=== PATIENT | male | born 1970 | race Caucasian/White ===

== ENCOUNTER 2016-05-31 14:29 | Emergency (ER) | payer MEDICARE, MEDICAID | END 2016-05-31 15:49 | disposition left against medical advice (07) | LOC: UCCORT 14:29 | DX: S89.91XA Unspecified injury of right lower leg, initial encounter (principal); X58.XXXA Exposure to other specified factors, initial encounter; Y93.9 Activity, unspecified; Y92.9 Unspecified place or not applicable; Z53.21 Procedure and treatment not carried out due to patient leaving prior to being seen by health care provider ==

== ENCOUNTER 2016-09-06 15:12 | Emergency (ER) | payer MEDICARE, MEDICAID ==
[2016-09-06 16:56] VITALS: BP 133/88
--- NOTE | 2016-09-06 17:05 | UC ---
Hand/Wrist HPI - HPI Summary HPI Summary: The patient comes in today for: 1. Right index and middle finger: Onset: Today Palliative/provocative: Movement makes it worse; rest makes it better. Quality: Ache. Region: Whole finger. Severity: 6 for the index finger. Time: Constant Associated symptoms: Event: The fingers were caught between the garbage can and the garbage bag. He states that he can't move his index finger "at all." * - History Of Current Complaint Chief Complaint: UCUpperExtremity Stated Complaint: RIGHT INDEX FINGER INJURY Time Seen by Provider: 09/06/16 16:57 Hx Obtained From: Patient, Family/Beauty Operator Apprentice ?: No - Allergies/Home Medications Allergies/Adverse Reactions: Allergies Allergy/AdvReac Type Severity Reaction Status Date / Time Amoxicillin [From Augmentin] Allergy Intermediate Rash Verified 09/06/16 17:14 Ampicillin Allergy Intermediate Rash Verified 09/06/16 17:14 Chlorine Allergy Intermediate Rash Verified 09/06/16 17:14 Clavulanic Acid Allergy Intermediate Rash Verified 09/06/16 17:14 [From Augmentin] Sulfa Drugs Allergy Intermediate Rash Verified 09/06/16 17:14 PMH/Surg Hx/FS Hx/Imm Hx Previously Healthy: No - BPH Endocrine History Of: Reports: Diabetes, Dyslipidemia Denies: Thyroid Disease - PH, Hyperthyroidism, Hypothyroidism Cardiovascular History Of: Denies: Cardiac Disorders, Hypertension, Pacemaker/ICD, Myocardial Infarction , Congestive Heart Failure, Atrial Fibrillation, Deep Vein Thrombosis, Bleeding Disorders Respiratory History Of: Denies: COPD, Asthma, Bronchitis, Pneumonia, Pulmonary Embolism GI/ History Of: Reports: Gastroesophageal Reflux Denies: Ulcer, Gastrointestinal Bleed, Gall Bladder Disease, Kidney Stones, Diverticulitis, Renal Disease, Urosepsis Neurological History Of: Denies: TIA, CVA, Dementia, Seizures, Migraine Psychological History Of: Reports: Anxiety Denies: Depression, Bipolar Disorder, Schizophrenia, Post Traumatic Stress Disorder Cancer History Of: Denies: Lung Cancer, Colorectal Cancer, Breast Cancer, Prostate Cancer, Cervical Cancer Other History Of: Negative For: HIV, Hepatitis B, Hepatitis C, Anticoagulant Therapy - Surgical History Surgical History: None Surgery Procedure, Year, and Place: HERNIA Repair, REPAIR OF LEFT RETINAL DETACHLMETNT. CATARACTS - Family History Known Family History: Positive: Diabetes Negative: Cardiac Disease, Hypertension - Social History Occupation: Employed Full-time Alcohol Use: Rare Alcohol Amount: occasional beer Substance Use Type: None Smoking Status (MU): Never Smoked Tobacco - Immunization History Most Recent Influenza Vaccination: none Review of Systems Constitutional: Negative Skin: Negative Eyes: Negative ENT: Negative Respiratory: Negative Cardiovascular: Negative Gastrointestinal: Negative Genitourinary: Negative Musculoskeletal: Arthralgia All Other Systems Reviewed And Are Negative: Yes Physical Exam Triage Information Reviewed: Yes Appearance: Well-Appearing, No Pain Distress - At rest., Well-Nourished Vital Signs: Initial Vital Signs Temp 99.4 F 09/06/16 16:51 Pulse 75 09/06/16 16:51 Resp 18 09/06/16 16:51 BP 133/88 09/06/16 16:51 Pulse Ox 99 09/06/16 16:51 Vital Signs Reviewed: Yes Eyes: Positive: Conjunctiva Clear. Negative: Discharge ENT: Positive: Hearing grossly normal. Negative: Pharyngeal erythema, Nasal congestion, Nasal drainage, TM bulging, TM dull, TM red, Tonsillar swelling, Tonsillar exudate Dental: Negative: Gross Decay/Caries @, Dental Fracture @ Neck: Positive: Supple, Nontender, No Lymphadenopathy. Negative: Nuchal Rigidity Respiratory: Positive: Chest non-tender, Lungs clear, No respiratory distress, No accessory muscle use. Negative: Rhonchi, Wheezing Cardiovascular: Positive: RRR, No Murmur Abdomen Description: Positive: Nontender, No Organomegaly, Soft. Negative: Distended, Guarding Musculoskeletal: Positive: Other: - Right index and middle finger: Minimal ecchymosis. No marked edema. He states that he can't move his finger "at all" but he is able to move the distal phalanx and the middle phalanx. There is ulnar deviation of the distal phalanx of these two fingers and others. Neurological: Positive: Alert, Muscle Tone Normal Psychological: Positive: Age Appropriate Behavior, Consolable Skin: Negative: rashes, breakdown Diagnostics - Radiology No standard instances Xray Interpretation: No Acute Changes Radiology Interpretation Completed By: ED Physician Hand/Wrist Course/Dx - Course Course Of Treatment: Patient and wild animal caretaker were shown the x-rays of his hand-- chronic changes but no obvious fracture. - Differential Dx/Diagnosis Provider Diagnoses: Contusion of the right index, and middle fingers. Discharge - Discharge Plan Condition: Stable Disposition: HOME Patient Education Materials: Contusion in Adults (ED) Additional Instructions: Please take the naproxen as needed for pain. Increased your activity as tolerated regarding your right hand. See your primary care provider later this week to see how well you are doing.
--- NOTE | 2016-09-06 18:27 | RAD ---
HISTORY: Right hand pain, injury COMPARISONS: Left hand dated August 02, 2013 VIEWS: 4, Frontal, lateral, and oblique views of the right hand FINDINGS: BONE DENSITY: Normal. BONES: There is no displaced fracture. 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 SOFT TISSUES: Unremarkable. OTHER FINDINGS: None. IMPRESSION: NO ACUTE OSSEOUS INJURY. IF SYMPTOMS PERSIST, RECOMMEND REPEAT IMAGING.
== END 2016-09-06 18:27 | disposition home or self-care (01) ==
LOC: UCCORT 15:12 → MERGE 15:12 → UCCORT 18:27
DX: S60.021A Contusion of right index finger without damage to nail, initial encounter (principal); S60.031A Contusion of right middle finger without damage to nail, initial encounter; W23.0XXA Caught, crushed, jammed, or pinched between moving objects, initial encounter; Y93.9 Activity, unspecified; Y92.9 Unspecified place or not applicable; Z88.1 Allergy status to other antibiotic agents; E78.5 Hyperlipidemia, unspecified; K21.9 Gastro-esophageal reflux disease without esophagitis; F41.9 Anxiety disorder, unspecified
CPT/HCPCS: 99212; G0463

== ENCOUNTER 2016-09-24 13:42 | Emergency (ER) | payer MEDICARE, MEDICAID ==
[2016-09-24] MEDS ORDERED: Ibuprofen TAB* 600 MG PO ONE (15:47)
--- NOTE | 2016-09-24 16:25 | RAD ---
INDICATION: Right ankle injury. TECHNIQUE: 3 views of the right ankle were obtained. FINDINGS: Soft tissue swelling is noted along the anterolateral aspect of the ankle. No fracture is seen. Joint spaces appear maintained. IMPRESSION: SOFT TISSUE SWELLING, NO FRACTURE IS SEEN.
[2016-09-24 16:29] VITALS: BP 140/93
--- NOTE | 2016-09-24 17:07 | UC ---
Lower Extremity/Ankle HPI - HPI Summary HPI Summary: 46 yo M was accidentally struck by an automatic door at [facility] at his work this am approximately 11am. Pt is a resident of the [facility]. Pt is accompanied by Lisa Mukherjee and Sindi Webster staff members. Pt has pain and swelling and hurts to bear weight. - History of Current Complaint Chief Complaint: UCLowerExtremity Stated Complaint: RIGHT ANKLE COMPLAINT Time Seen by Provider: 09/24/16 15:33 Hx Obtained From: Patient, Family/Dope Edger - staff at [facility] Onset/Duration: Sudden Onset, Lasting Hours, Still Present Severity Initially: Moderate Severity Currently: Moderate Pain Intensity: 10 Pain Scale Used: 0-10 Numeric Aggravating Factor(s): Standing Alleviating Factor(s): Nothing Able to Bear Weight: Yes - painful Related History: Occupational Injury - Allergies/Home Medications Allergies/Adverse Reactions: Allergies Allergy/AdvReac Type Severity Reaction Status Date / Time Amoxicillin [From Augmentin] Allergy Intermediate Rash Verified 09/24/16 14:00 Ampicillin Allergy Intermediate Rash Verified 09/24/16 14:00 Chlorine Allergy Intermediate Rash Verified 09/24/16 14:00 Clavulanic Acid Allergy Intermediate Rash Verified 09/24/16 14:00 [From Augmentin] Sulfa Drugs Allergy Intermediate Rash Verified 09/24/16 14:00 PMH/Surg Hx/FS Hx/Imm Hx Endocrine History Of: Reports: Diabetes, Dyslipidemia Denies: Thyroid Disease, Hyperthyroidism, Hypothyroidism Cardiovascular History Of: Denies: Cardiac Disorders, Hypertension, Pacemaker/ICD, Myocardial Infarction , Congestive Heart Failure, Atrial Fibrillation, Deep Vein Thrombosis, Bleeding Disorders Respiratory History Of: Denies: COPD, Asthma, Bronchitis, Pneumonia, Pulmonary Embolism GI/ History Of: Reports: Gastroesophageal Reflux Denies: Ulcer, Gastrointestinal Bleed, Gall Bladder Disease, Kidney Stones, Diverticulitis, Renal Disease, Urosepsis Neurological History Of: Denies: TIA, CVA, Dementia, Seizures, Migraine Psychological History Of: Reports: Anxiety Denies: Depression, Bipolar Disorder, Schizophrenia, Post Traumatic Stress Disorder Cancer History Of: Denies: Lung Cancer, Colorectal Cancer, Breast Cancer, Prostate Cancer, Cervical Cancer Other History Of: Negative For: HIV, Hepatitis B, Hepatitis C, Anticoagulant Therapy - Surgical History Surgery Procedure, Year, and Place: HERNIA Repair, REPAIR OF LEFT RETINAL DETACHLMETNT. CATARACTS - Family History Known Family History: Positive: Diabetes Negative: Cardiac Disease, Hypertension - Social History Occupation: Employed Part-time - [employer] Lives: [place] - [facility] Alcohol Use: None Alcohol Amount: occasional beer Substance Use Type: None Smoking Status (MU): Never Smoked Tobacco - Immunization History Most Recent Influenza Vaccination: none Review of Systems Constitutional: Negative Skin: Negative Eyes: Negative ENT: Negative Respiratory: Negative Cardiovascular: Negative Gastrointestinal: Negative Motor: Negative Neurovascular: Negative Musculoskeletal: Arthralgia - right ankle pain Neurological: Negative Psychological: Negative All Other Systems Reviewed And Are Negative: Yes Physical Exam Triage Information Reviewed: Yes Appearance: Well-Appearing, Well-Nourished, Pain Distress, Other: - very small stature, very small feet Vital Signs: Initial Vital Signs Temp 98.8 F 09/24/16 13:52 Pulse 88 09/24/16 13:52 Resp 18 09/24/16 13:52 BP 129/88 09/24/16 13:52 Pulse Ox 99 09/24/16 13:52 Vital Signs Reviewed: Yes Eyes: Positive: Conjunctiva Clear ENT: Positive: Hearing grossly normal. Negative: Muffled/hoarse voice Neck: Positive: Supple Respiratory: Positive: No respiratory distress Cardiovascular: Positive: RRR, Pulses Normal, Brisk Capillary Refill Musculoskeletal: Positive: Strength Intact, ROM Intact, Other: - swelling and pain lat malleolus, no prox tib tenderness, no foot tenderness, no medial malleolus pain Neurological: Positive: Alert, Muscle Tone Normal Psychological Exam: Normal Skin Exam: Normal Lower Extremity Course/Dx - Course Course Of Treatment: right ankle xray neg - Differential Dx/Diagnosis Differential Diagnosis/HQI/PQRI: Contusion, Fracture (Closed), Sprain, Strain Provider Diagnoses: right ankle sprain. elevated BP without diagnosis of HTN Discharge - Discharge Plan Condition: Stable Disposition: HOME Patient Education Materials: Ankle Sprain (ED), Ankle Stirrup Splint (ED) Referrals: Kenneth Hess MD [Medical Doctor] - 3 Days Ari Nicole DO [Primary Care Provider] - Additional Instructions: Your blood pressure was slightly elevated today. You should have this rechecked within one month by Dr. Nicole. Return to urgent care if any new or worsening symptoms.
== END 2016-09-24 17:31 | disposition home or self-care (01) ==
LOC: UCCORT 13:42
DX: S93.401A Sprain of unspecified ligament of right ankle, initial encounter (principal); W20.8XXA Other cause of strike by thrown, projected or falling object, initial encounter; Y93.9 Activity, unspecified; Y92.29 Other specified public building as the place of occurrence of the external cause; Y99.0 Civilian activity done for income or pay; R03.0 Elevated blood-pressure reading, without diagnosis of hypertension; E11.8 Type 2 diabetes mellitus with unspecified complications; E78.5 Hyperlipidemia, unspecified; K21.9 Gastro-esophageal reflux disease without esophagitis; F41.9 Anxiety disorder, unspecified; Z88.1 Allergy status to other antibiotic agents; Z88.0 Allergy status to penicillin; Z88.2 Allergy status to sulfonamides
CPT/HCPCS: 99213; A9270-GY; G0463

== ENCOUNTER 2017-10-20 15:08 | Emergency (ER) | payer MEDICARE, MEDICAID ==
[2017-10-20 15:49] VITALS: BP 132/88
--- NOTE | 2017-10-20 16:00 | UC ---
Lower Extremity/Ankle HPI - HPI Summary HPI Summary: Stepped off a high step yesterday, and turned on his right ankle. Has persistent pain in the left foot, lateral border, with mild brusing and minimal swelling. No analgesics used. - History of Current Complaint Chief Complaint: UCLowerExtremity Stated Complaint: LEFT ANKLE INJURY Time Seen by Provider: 10/20/17 15:43 Hx Obtained From: Patient, Family/Cloth Weaver Onset/Duration: Sudden Onset, Lasting Days - 1 Severity Initially: Moderate Severity Currently: Moderate Pain Intensity: 10 - with weight bearing. Aggravating Factor(s): Standing, Ambulation Alleviating Factor(s): Rest, Elevation, Ice Able to Bear Weight: Yes - Risk Factors Gout Risk Factors: Male, Obesity DVT Risk Factors: Negative - Allergies/Home Medications Allergies/Adverse Reactions: Allergies Allergy/AdvReac Type Severity Reaction Status Date / Time amoxicillin [From Augmentin] Allergy Rash Verified 10/20/17 15:51 ampicillin Allergy Rash Verified 10/20/17 15:51 clavulanic acid Allergy Rash Verified 10/20/17 15:51 [From Augmentin] Sulfa (Sulfonamide Allergy Rash Verified 10/20/17 15:51 Antibiotics) CHLORINE Allergy Rash Uncoded 10/20/17 15:51 Home Medications: Home Medications Nystatin CREAM* 1 applic TOPICAL BID 10/20/17 [History Confirmed 10/20/17] PMH/Surg Hx/FS Hx/Imm Hx Endocrine History: Diabetes Other History Of: Negative For: HIV, Hepatitis B, Hepatitis C, Anticoagulant Therapy - Surgical History Surgical History: Yes Surgery Procedure, Year, and Place: HERNIA Repair,. REPAIR OF LEFT RETINAL DETACHMENT. BILATERAL CATARACT REMOVAL. YAG CAPSULOTOMY LEFT EYE - Family History Known Family History: Positive: Diabetes Negative: Cardiac Disease, Hypertension - Social History Occupation: Employed Part-time - [employer] Lives: [place] Alcohol Use: None Alcohol Amount: occasional beer Substance Use Type: None Smoking Status (MU): Never Smoked Tobacco - Immunization History Most Recent Influenza Vaccination: none Review of Systems Constitutional: Negative Skin: Negative Eyes: Negative ENT: Negative Respiratory: Negative Cardiovascular: Negative Gastrointestinal: Negative Genitourinary: Negative Motor: Negative Neurovascular: Negative Musculoskeletal: Arthralgia Neurological: Negative Psychological: Negative Is Patient Immunocompromised?: No All Other Systems Reviewed And Are Negative: Yes Physical Exam Triage Information Reviewed: Yes Appearance: Well-Appearing, Obese Vital Signs: Initial Vital Signs Temp 99.1 F 10/20/17 15:35 Pulse 74 10/20/17 15:35 Resp 22 10/20/17 15:35 BP 132/88 10/20/17 15:35 Pulse Ox 99 10/20/17 15:35 Cardiovascular: Positive: RRR, No Murmur Musculoskeletal Exam: Other - Mild ecchymosis lateral left foot, mild swelling. Knee, ankle rom intact. Tenderness 5th metatarsal. Musculoskeletal: Positive: ROM Limited @ - left midfoot. Psychological Exam: Normal Diagnostics - Laboratory Diagnostic Studies Completed/Ordered: xray left foot, fracture shaft of distal fifth metatarsal left foot. Lower Extremity Course/Dx - Course Course Of Treatment: CAM walker left foot --chosen because this will work best with his body habitus - Differential Dx/Diagnosis Differential Diagnosis/HQI/PQRI: Fracture (Closed), Sprain, Strain Provider Diagnoses: fracture distal left fifth metatarsal. Discharge - Sign-Out/Discharge Documenting (check all that apply): Discharge/Admit/Transfer - Discharge Plan Condition: Stable Disposition: HOME Patient Education Materials: Foot Fracture in Adults (ED) Referrals: Ari Nicole DO [Primary Care Provider] - Kenneth Hess MD [Medical Doctor] - Additional Instructions: Keep the foot elevated as much as possble for the next 3 days. The CAM walker can be removed for bathing/showering. Please call [facility] orthopedist tomorrow for follow up. - Billing Disposition and Condition Condition: STABLE Disposition: Home
--- NOTE | 2017-10-20 16:34 | RAD ---
INDICATION: Left foot injury. TECHNIQUE: 3 views of the left foot were obtained. FINDINGS: There is a transverse fracture of the distal fifth metatarsal approximately at the junction of the diaphysis and metaphysis. The distal fragment is displaced approximately 1 cortical diameter medial relative to the proximal fragment. No other fractures are seen. Joint spaces appear maintained. IMPRESSION: SLIGHTLY DISPLACED FRACTURE OF THE DISTAL FIFTH METATARSAL.
[2017-10-20] MEDS ORDERED: Ibuprofen TAB* 400 MG PO ONE (16:55)
== END 2017-10-20 17:02 | disposition home or self-care (01) ==
LOC: UCCORT 15:08
DX: S92.352A Displaced fracture of fifth metatarsal bone, left foot, initial encounter for closed fracture (principal); X50.0XXA Overexertion from strenuous movement or load, initial encounter; Y93.89 Activity, other specified; Y92.9 Unspecified place or not applicable; Z88.1 Allergy status to other antibiotic agents; Z88.0 Allergy status to penicillin; Z88.2 Allergy status to sulfonamides; Z88.8 Allergy status to other drugs, medicaments and biological substances; Z91.048 Other nonmedicinal substance allergy status
CPT/HCPCS: 99213; A9270-GY; G0463

== ENCOUNTER 2017-10-21 12:23 | Emergency (ER) | payer MEDICARE, MEDICAID ==
--- NOTE | 2017-10-21 12:58 | UC ---
Skin Complaint HPI - HPI Summary HPI Summary: Pt is accompanied by caregiver from [facility]. Pt has open wound on left mid, posterior forearm. Pt reports that he was wearing a bandaid and when he removed it, the scab came off with the band aid and he now refuses to wear a band aid., wound is not worsening in redness, tenderness or has purulent discharge. Denies fever, chills, or red streaking. - History of Current Complaint Time Seen by Provider: 10/21/17 12:50 Stated Complaint: OPEN WOUND LEFT FOREARM Hx Obtained From: Patient, Family/Procedures Analyst Onset/Duration: Lasting Days, Still Present Skin Exposure Onset/Duration: Days Ago Timing: Constant Onset Severity: Mild Current Severity: Mild Location: Discrete - forearm Aggravating Factor(s): Touch Alleviating Factor(s): Other - band aid Associated Signs & Symptoms: Positive: Negative - Allergy/Home Medications Allergies/Adverse Reactions: Allergies Allergy/AdvReac Type Severity Reaction Status Date / Time amoxicillin [From Augmentin] Allergy Rash Verified 10/20/17 15:51 ampicillin Allergy Rash Verified 10/20/17 15:51 clavulanic acid Allergy Rash Verified 10/20/17 15:51 [From Augmentin] Sulfa (Sulfonamide Allergy Rash Verified 10/20/17 15:51 Antibiotics) CHLORINE Allergy Rash Uncoded 10/20/17 15:51 Review of Systems Constitutional: Negative Skin: Other - wound left mid forearm Eyes: Negative ENT: Negative Respiratory: Negative Cardiovascular: Negative Gastrointestinal: Negative Genitourinary: Negative Motor: Decreased ROM - left foot in cam boot. , was seen here on 10/20/17 for LLE c/o Neurovascular: Negative Musculoskeletal: Arthralgia, Decreased ROM, Myalgia Neurological: Negative Psychological: Negative Is Patient Immunocompromised?: No All Other Systems Reviewed And Are Negative: Yes PMH/Surg Hx/FS Hx/Imm Hx Previously Healthy: Yes - has cognitive impairment. Other History Of: Negative For: HIV, Hepatitis B, Hepatitis C, Anticoagulant Therapy - Surgical History Surgical History: Yes Surgery Procedure, Year, and Place: HERNIA Repair,. REPAIR OF LEFT RETINAL DETACHMENT. BILATERAL CATARACT REMOVAL. YAG CAPSULOTOMY LEFT EYE - Family History Known Family History: Positive: Diabetes Negative: Cardiac Disease, Hypertension - Social History Occupation: Disabled Lives: [facility] Alcohol Use: None Alcohol Amount: occasional beer Substance Use Type: None Smoking Status (MU): Never Smoked Tobacco Have You Smoked in the Last Year: No - Immunization History Most Recent Influenza Vaccination: none Physical Exam Triage Information Reviewed: Yes Appearance: Well-Appearing Vital Signs Reviewed: Yes Eye Exam: Normal ENT: Positive: Hearing grossly normal Respiratory: Positive: No respiratory distress Musculoskeletal Exam: Other Musculoskeletal: Positive: ROM Limited @ - left LE is cam boot Neurological Exam: Normal Psychological Exam: Normal Skin Exam: Other - ~2 cm scabbed wound left mid forearm. healing wound Course/Dx - Differential Diagnoses - Skin Complaint Differential Diagnoses: Other - healing wound - Diagnoses Provider Diagnoses: healing wound left forearm Discharge - Sign-Out/Discharge Documenting (check all that apply): Discharge/Admit/Transfer - Discharge Plan Condition: Stable Disposition: HOME Prescriptions: Ibuprofen TAB* [Motrin TAB* 800 MG] 800 mg PO Q8H PRN #21 tab PRN Reason: Pain Patient Education Materials: Acute Wound Care (ED), Acute Wounds (ED) Referrals: Ari Nicole DO [Primary Care Provider] - If Needed - Billing Disposition and Condition Condition: STABLE Disposition: Home
[2017-10-21 13:24] VITALS: BP 135/90
== END 2017-10-21 13:27 | disposition home or self-care (01) ==
LOC: UCCORT 12:23
DX: S51.812D Laceration without foreign body of left forearm, subsequent encounter (principal); X58.XXXD Exposure to other specified factors, subsequent encounter; Z88.1 Allergy status to other antibiotic agents; Z88.0 Allergy status to penicillin; Z88.2 Allergy status to sulfonamides; Z91.048 Other nonmedicinal substance allergy status
CPT/HCPCS: 99212; G0463

== ENCOUNTER 2017-12-26 16:37 | Emergency (ER) | payer MEDICARE, MEDICAID ==
--- OUTSIDE RECORDS SUMMARY | 2017-12-26 17:09 | XMS REPORT ---
:1970 External Reference #:[id number] Author Organization [facility] Address [address] [place] [address] [place] [address] Phone [phone] Care Team Providers Name Role Phone Ari NicoleDO Primary Care Physician Unavailable Payers Type Date Identification Numbers Payment Provider Subscriber Medicare Primary Effective: Policy Number: Medicare Ron Kunz 1999 [id number] PayID: [id number] [address] [place] [address] [employer] Part B Policy Number: [id number] Medicaid Ron Kunz Group Name: 1 1 [address] PayID: [id number] [place] [address] Problems Description No Information Family History Date Family Member(s) Problem(s) Comments General None Social History Type Date Description Comments Occupation works at [employer] ETOH Use Occasionally consumes beer Smoking Patient has never smoked Recreational Drug Use Denies Drug Use Daily Caffeine Does Not Consume Caffeine Exercise Type/Frequency Exercises sporadically Allergies, Adverse Reactions, Alerts Date Description Reaction Status Severity Comments 10/21/2017 Sulfa Antibiotics active 10/21/2017 Ampicillin active 10/21/2017 Clavulanic Acid active 10/21/2017 Amoxicillin active 03/04/2011 NKDA inactive Medications Medication Date Status Form Strength Qnty SIG Indications Ordering Provider Nystatin 00// Active Cream [id number] topically Unknown 0000 t/GM twice a day as needed Artificial / Active Solution 0.1-0.3% 2 drops in Unknown Tears 0000 both eyes every 6 hours as needed Acetaminophen 00/00/ Active Tablets 325mg 2 tablets Unknown 0000 by mouth every 6 hours as needed for pain/fever Loratadine / Active Capsules 10mg once a day Unknown 0000 for allergies as needed Buspirone HCL / Active Tablets 15mg take one Unknown 0000 tablet by mouth twice a day Omeprazole / Active Capsules DR 20mg 1 by mouth Unknown 0000 every day Vitamin D 00/ Active Tablets 1000Unit by mouth Unknown 0000 everyday Januvia 0000/ Active Tablets 100mg 1 by mouth Unknown 0000 every day Mylanta 0000/ Active Suspension 200-200-2 every 4 Unknown 0000 0mg/5ML hours as needed Metformin HCL / Active Tablets 1000mg 1 by mouth Unknown 0000 twice a day Sudafed / Active Tablets 30mg Unknown 0000 Ferrous / Active Tablets 324(38Fe) 1 by mouth Unknown Gluconate 0000 mg every day Glipizide ER 00/ Active Tablets ER 5mg 1 by mouth Unknown 0000 24HR every morning Alfuzosin HCL 00/ Active Tablets ER 10mg Unknown ER 0000 24HR Lipitor 00/ Active Tablets 10mg 1 by mouth Unknown 0000 every night at bedtime See Med List Osei Martinez, MHiramDHiram 2017 Vital Signs Date Vital Result Comment 12/22/2017 Height 56 inches 4'8" Weight 120.00 lb Heart Rate 60 /min BP Systolic Sitting 128 mmHg BP Diastolic Sitting 64 mmHg Respiratory Rate 16 /min Pain Level 0 BMI (Body Mass Index) 26.9 kg/m2 11/24/2017 Height 56 inches 4'8" Weight 122.00 lb Heart Rate 84 /min BP Systolic Sitting 104 mmHg BP Diastolic Sitting 60 mmHg Respiratory Rate 16 /min Pain Level 9 BMI (Body Mass Index) 27.3 kg/m2 10/25/2017 Height 56 inches 4'8" Weight 122.00 lb Heart Rate 68 /min BP Systolic Sitting 122 mmHg BP Diastolic Sitting 68 mmHg Respiratory Rate 16 /min Pain Level 10 BMI (Body Mass Index) 27.3 kg/m2 03/04/2011 Heart Rate 78 /min BP Systolic Sitting 124 mmHg BP Diastolic Sitting 84 mmHg Results Description No Information Procedures Date CPT Code Description Status 11/24/2017 49625 Rad Exam; Foot Comp Completed Encounters Type Date Location Provider CPT E/M Dx Office Visit 11/24/2017 [place] [address] [id number] 11:15a Of [facility] [place] Office Visit 10/25/2017 [place] [address] [id number] 3:00p Of [facility] [place] Office Visit 04/19/2011 [facility] Praveena Martinez M.D. [id number] 845.00 2:30p Health [facility] [place] Office Visit 03/22/2011 [facility] Osei Martinez M.D. 68614 845.00 3:30p Health Coach [facility] [place] Office Visit 03/04/2011 [facility] Praveena Martinez M.D. 53866 845.00 2:45p Health Coach AT [place] Plan of Care 12/22/2017 - Kenneth Hess, [id number] Disp fx of 5th metatarsal bone, l ft, 7thDNew Xrays:Foot Left 3+ VWSFollow up:Follow up: As needed
[2017-12-26 17:20] VITALS: BP 136/84
--- NOTE | 2017-12-26 17:51 | UC ---
Skin Complaint HPI - HPI Summary HPI Summary: Patient states he has an itchy rash for several days in his inner thighs. Denies extension of the rash to his groin area. He denies chills, fever. No other complaints - History of Current Complaint Chief Complaint: UCSkin Time Seen by Provider: 12/26/17 17:03 Stated Complaint: BILATERAL LEG RASH Hx Obtained From: Patient Onset/Duration: Gradual Onset, Lasting Days Skin Exposure Onset/Duration: Days Ago Timing: Constant Onset Severity: Mild Current Severity: Moderate Pain Intensity: 0 Location: Discrete, Other - inner thighs Aggravating Factor(s): Nothing Alleviating Factor(s): Nothing Associated Signs & Symptoms: Positive: Negative - Allergy/Home Medications Allergies/Adverse Reactions: Allergies Allergy/AdvReac Type Severity Reaction Status Date / Time amoxicillin [From Augmentin] Allergy Rash Verified 12/26/17 17:11 ampicillin Allergy Rash Verified 12/26/17 17:11 clavulanic acid Allergy Rash Verified 12/26/17 17:11 [From Augmentin] Sulfa (Sulfonamide Allergy Rash Verified 12/26/17 17:11 Antibiotics) CHLORINE Allergy Rash Uncoded 12/26/17 17:11 Home Medications: Home Medications Cholecalciferol (Vitamin D3) [Vitamin D3] 2,000 unit PO 1500 12/26/17 [History Confirmed 12/26/17] Review of Systems Constitutional: Negative Skin: Rash ENT: Negative Respiratory: Negative Cardiovascular: Negative Gastrointestinal: Negative Genitourinary: Negative Motor: Negative Neurovascular: Negative Musculoskeletal: Negative Neurological: Negative Psychological: Negative All Other Systems Reviewed And Are Negative: Yes PMH/Surg Hx/FS Hx/Imm Hx - Additional Past Medical History Additional PMH: Prader Willi syndrome, osteoporosis Previously Healthy: Yes Endocrine History: Diabetes, Dyslipidemia Psychological History: Anxiety Other History Of: Negative For: HIV, Hepatitis B, Hepatitis C, Anticoagulant Therapy - Surgical History Surgical History: Yes Surgery Procedure, Year, and Place: HERNIA Repair,. REPAIR OF LEFT RETINAL DETACHMENT. BILATERAL CATARACT REMOVAL. YAG CAPSULOTOMY LEFT EYE - Family History Known Family History: Positive: Diabetes Negative: Cardiac Disease, Hypertension - Social History Alcohol Use: None Alcohol Amount: occasional beer Substance Use Type: None Smoking Status (MU): Never Smoked Tobacco Have You Smoked in the Last Year: No - Immunization History Most Recent Influenza Vaccination: none Physical Exam Triage Information Reviewed: Yes Appearance: Well-Appearing, No Pain Distress, Well-Nourished Vital Signs: Initial Vital Signs Temp 98.2 F 12/26/17 17:17 Pulse 73 12/26/17 17:17 Resp 17 12/26/17 17:17 BP 136/84 12/26/17 17:17 Pulse Ox 99 12/26/17 17:17 Vital Signs Reviewed: Yes Eyes: Positive: Conjunctiva Clear ENT: Positive: Hearing grossly normal, Pharynx normal, TMs normal Neck: Positive: Supple, Nontender, No Lymphadenopathy Respiratory: Positive: Chest non-tender, Lungs clear, Normal breath sounds, No respiratory distress Cardiovascular: Positive: RRR, No Murmur, Pulses Normal, Brisk Capillary Refill Abdomen Description: Positive: Nontender Skin: Positive: rashes - circular well circumscribed macular rash with active borders on both inner thighs Course/Dx - Course Course Of Treatment: tinea corporis, miconazole cream bid for a week, keep area dry. Prescription sent. - Diagnoses Provider Diagnoses: Tinea corporis Discharge - Sign-Out/Discharge Documenting (check all that apply): Patient Departure All imaging exams completed and their final reports reviewed: No Studies - Discharge Plan Condition: Stable Disposition: HOME Prescriptions: Miconazole TOPICAL CREAM 2%* [Monistat 2%*] 1 applic TOPICAL BID 7 Days #1 tube Patient Education Materials: Miconazole (On the skin), Tinea Corporis (ED) Referrals: Ari Nicole DO [Primary Care Provider] - - Billing Disposition and Condition Condition: STABLE Disposition: Home
== END 2017-12-26 17:48 | disposition home or self-care (01) ==
LOC: UCCORT 16:37
DX: B35.4 Tinea corporis (principal); Z88.0 Allergy status to penicillin; Z88.1 Allergy status to other antibiotic agents; E11.9 Type 2 diabetes mellitus without complications
CPT/HCPCS: 99212; G0463

== ENCOUNTER 2017-12-28 17:46 | Emergency (ER) | payer MEDICARE, MEDICAID ==
[2017-12-28 18:15] VITALS: BP 135/95
--- NOTE | 2017-12-28 18:25 | UC ---
Skin Complaint HPI - HPI Summary HPI Summary: PT NOTED LEFT ELBOW WOUND TODAY. IS A RESIDENT OF [facility]. SHOWED STAFF MEMBER ( KELSEY) TODAY WHO IMMEDIATELY BROUGHT HIM HERE TO FOR EVALUATION. NO FEVER. MINIMAL CLEAR DRAINAGE FROM WOUND WITH SURROUNDING REDNESS. PER STAFF MEMBER PT IS UTD TETANUS WITHIN THE PAST 5 YEARS. - History of Current Complaint Chief Complaint: UCSkin Time Seen by Provider: 12/28/17 18:07 Stated Complaint: L ELBOW SKIN CONCERN Hx Obtained From: Patient, Family/Tableau Analyst - KELSEY - STAFF Onset/Duration: Gradual Onset, Lasting Hours, Still Present Timing: Constant Onset Severity: Moderate Current Severity: Moderate Pain Intensity: 0 Pain Scale Used: 0-10 Numeric Location: Discrete - LEFT ELBOW Character: Redness, Raised Aggravating Factor(s): Touch Alleviating Factor(s): Nothing Associated Signs & Symptoms: Positive: Tenderness - Allergy/Home Medications Allergies/Adverse Reactions: Allergies Allergy/AdvReac Type Severity Reaction Status Date / Time amoxicillin [From Augmentin] Allergy Rash Verified 12/26/17 17:11 ampicillin Allergy Rash Verified 12/26/17 17:11 clavulanic acid Allergy Rash Verified 12/26/17 17:11 [From Augmentin] Sulfa (Sulfonamide Allergy Rash Verified 12/26/17 17:11 Antibiotics) CHLORINE Allergy Rash Uncoded 12/26/17 17:11 Home Medications: Home Medications Hydrocortisone 1% CREAM* [Hytone Cream 1%*] 1 applic TOPICAL TID 12/28/17 [ History Confirmed 12/28/17] Review of Systems Skin: Other - ABRASION AND ERYTHEMA Respiratory: Negative Cardiovascular: Negative Gastrointestinal: Negative All Other Systems Reviewed And Are Negative: Yes PMH/Surg Hx/FS Hx/Imm Hx - Additional Past Medical History Additional PMH: MR, PRADER WILLI, OSTEOPOROSIS Endocrine History: Dyslipidemia Other GI/ History: URINARY RETENTION Other History Of: Negative For: HIV, Hepatitis B, Hepatitis C, Anticoagulant Therapy - Surgical History Surgical History: Yes Surgery Procedure, Year, and Place: HERNIA Repair,. REPAIR OF LEFT RETINAL DETACHMENT. BILATERAL CATARACT REMOVAL. YAG CAPSULOTOMY LEFT EYE - Family History Known Family History: Positive: Diabetes Negative: Cardiac Disease, Hypertension - Social History Alcohol Use: None Alcohol Amount: occasional beer Substance Use Type: None Smoking Status (MU): Never Smoked Tobacco Have You Smoked in the Last Year: No - Immunization History Most Recent Influenza Vaccination: none Physical Exam Triage Information Reviewed: Yes Appearance: Well-Appearing, No Pain Distress, Well-Nourished Vital Signs: Initial Vital Signs Temp 98.4 F 12/28/17 18:04 Pulse 79 12/28/17 18:04 Resp 18 12/28/17 18:04 BP 135/95 12/28/17 18:04 Pulse Ox 99 12/28/17 18:04 Vital Signs Reviewed: Yes Eyes: Positive: Conjunctiva Clear ENT: Positive: Hearing grossly normal Neck: Positive: Supple Respiratory: Positive: No respiratory distress, No accessory muscle use Cardiovascular: Positive: Pulses Normal Musculoskeletal: Positive: ROM Intact, No Edema Neurological: Positive: Alert Psychological: Positive: Age Appropriate Behavior Skin: Positive: Other - 1CM ABRASION LEFT ELBOW WITH 7CM X 3 CM AREA OF SURROUNDING ERYTHEMA. MILDLY TENDER. SOME CLEAR DRAINAGE FROM ABRASION Course/Dx - Course Course Of Treatment: SWAB SENT FOR CX. KEFLEX X 10 DAYS - Diagnoses Provider Diagnoses: 1. ABRASION LEFT ELBOW WITH SURROUNDING CELLULITIS Discharge - Sign-Out/Discharge Documenting (check all that apply): Patient Departure All imaging exams completed and their final reports reviewed: No Studies - Discharge Plan Condition: Stable Disposition: HOME Prescriptions: Cephalexin CAP* [Keflex 500 CAP*] 1,000 mg PO BID #36 cap Patient Education Materials: Cellulitis (ED) Referrals: Ari Nicole DO [Primary Care Provider] - If Needed Additional Instructions: TAKE THE CEPHALEXIN FOR THE FULL 10 DAYS. FIRST DOSE GIVEN HERE IN THE URGENT CARE TONIGHT. YOU HAVE BEEN SENT HOME WITH A 1000 MG DOSE TO TAKE TOMORROW MORNING BETWEEN THE HOURS OF 6:30AM AND 8:30AM. KEEP THE WOUND CLEAN AND COVERED WITH A THIN LAYER OF ANTIBIOTIC OINTMENT AND A NONSTICK BANDAGE. SEEK FOLLOW-UP IF YOU DEVELOP FURTHER SPREADING REDNESS OF THE SKIN, PURULENT DRAINAGE, INCREASED PAIN, FEVER OR ANY OTHER CONCERNING SYMPTOMS. - Billing Disposition and Condition Condition: STABLE Disposition: Home
[2017-12-28] MEDS ORDERED: Cephalexin CAP* 500 MG PO ONE ×2 (18:26)
== END 2017-12-28 18:53 | disposition home or self-care (01) ==
LOC: UCCORT 17:46
DX: S50.312A Abrasion of left elbow, initial encounter (principal); L03.114 Cellulitis of left upper limb; B95.61 Methicillin susceptible Staphylococcus aureus infection as the cause of diseases classified elsewhere; X58.XXXA Exposure to other specified factors, initial encounter; Y93.9 Activity, unspecified; Y92.009 Unspecified place in unspecified non-institutional (private) residence as the place of occurrence of the external cause; Z88.0 Allergy status to penicillin; Z88.1 Allergy status to other antibiotic agents; F79 Unspecified intellectual disabilities
CPT/HCPCS: 87070; 87205; 87640; 87641; 99213; A9270-GY; G0463

== ENCOUNTER 2017-12-31 17:31 | Emergency (ER) | payer MEDICARE, MEDICAID ==
[2017-12-31 18:00] VITALS: BP 132/85
--- NOTE | 2017-12-31 18:28 | UC ---
Skin Complaint HPI - HPI Summary HPI Summary: Patient states he has an itchy rash on his right leg which appeared yesterday. He does not know what triggered it. denies leg pain, chills or fever. Is currently on Keflex day 2 for skin infection in elbow. - History of Current Complaint Chief Complaint: UCSkin Time Seen by Provider: 12/31/17 17:40 Stated Complaint: RIGHT LEG SKIN COMPLAINT Hx Obtained From: Patient Onset/Duration: Sudden Onset, Lasting Days Timing: Constant Onset Severity: Mild Current Severity: Mild Pain Intensity: 0 Location: Discrete Character: Pruritus Aggravating Factor(s): Nothing Alleviating Factor(s): Nothing Associated Signs & Symptoms: Positive: Negative Related History: Insect Bite/Sting - Allergy/Home Medications Allergies/Adverse Reactions: Allergies Allergy/AdvReac Type Severity Reaction Status Date / Time amoxicillin [From Augmentin] Allergy Rash Verified 12/31/17 18:00 ampicillin Allergy Rash Verified 12/31/17 18:00 clavulanic acid Allergy Rash Verified 12/31/17 18:00 [From Augmentin] Sulfa (Sulfonamide Allergy Rash Verified 12/31/17 18:00 Antibiotics) CHLORINE Allergy Rash Uncoded 12/31/17 18:00 Review of Systems Constitutional: Negative Skin: Rash All Other Systems Reviewed And Are Negative: Yes PMH/Surg Hx/FS Hx/Imm Hx Previously Healthy: Yes Endocrine History: Diabetes, Dyslipidemia Psychological History: Anxiety Other History Of: Negative For: HIV, Hepatitis B, Hepatitis C, Anticoagulant Therapy - Surgical History Surgical History: Yes Surgery Procedure, Year, and Place: HERNIA Repair,. REPAIR OF LEFT RETINAL DETACHMENT. BILATERAL CATARACT REMOVAL. YAG CAPSULOTOMY LEFT EYE - Family History Known Family History: Positive: Diabetes Negative: Cardiac Disease, Hypertension - Social History Alcohol Use: None Alcohol Amount: occasional beer Substance Use Type: None Smoking Status (MU): Never Smoked Tobacco Have You Smoked in the Last Year: No - Immunization History Most Recent Influenza Vaccination: none Physical Exam Triage Information Reviewed: Yes Appearance: Well-Appearing, No Pain Distress, Well-Nourished Vital Signs: Initial Vital Signs Temp 98.9 F 12/31/17 17:56 Pulse 78 12/31/17 17:56 Resp 20 12/31/17 17:56 BP 132/85 12/31/17 17:56 Pulse Ox 99 12/31/17 17:56 Vital Signs Reviewed: Yes Eyes: Positive: Conjunctiva Clear ENT: Positive: Hearing grossly normal Neck: Positive: Supple Respiratory: Positive: Chest non-tender Cardiovascular: Positive: Pulses Normal, Brisk Capillary Refill Abdomen Description: Positive: Nontender Skin: Positive: rashes - 2 areas of erythema and central induration with scab on distal aspect of right leg. Non tender to palpation, distal pulses are present, capillary refill brisk. Course/Dx - Course Course Of Treatment: Insect bite. Start hydrocortisone cream twice a day for a week. - Diagnoses Provider Diagnoses: Allergic reaction to insect bite Discharge - Sign-Out/Discharge Documenting (check all that apply): Patient Departure All imaging exams completed and their final reports reviewed: No Studies - Discharge Plan Condition: Stable Disposition: HOME Prescriptions: Hydrocortisone 2.5% CREAM(NF) 1 applic TOPICAL BID 7 Days #1 tube Patient Education Materials: Insect Bite or Sting (ED), Hydrocortisone (On the skin) Referrals: rAi Nicole DO [Primary Care Provider] - Additional Instructions: please apply cream twice a day on your right leg for a week. If itching decreases, you can shorten the number of days you apply the cream for. - Billing Disposition and Condition Condition: STABLE Disposition: Home
== END 2017-12-31 18:26 | disposition home or self-care (01) ==
LOC: UCCORT 17:31
DX: T63.481A Toxic effect of venom of other arthropod, accidental (unintentional), initial encounter (principal); L53.0 Toxic erythema; Y92.9 Unspecified place or not applicable; Z88.0 Allergy status to penicillin; Z88.8 Allergy status to other drugs, medicaments and biological substances; Z88.1 Allergy status to other antibiotic agents
CPT/HCPCS: 99212; G0463

== ENCOUNTER 2018-01-10 16:03 | Emergency (ER) | payer MEDICAID, MEDICARE ==
[2018-01-10] MEDS ORDERED: Ibuprofen TAB* 200 MG PO ONE (16:20)
[2018-01-10 16:23] VITALS: BP 140/91
--- NOTE | 2018-01-10 16:24 | UC ---
Lower Extremity/Ankle HPI - HPI Summary HPI Summary: 47-year-old male with history of Prader-Willi syndrome presents with atraumatic left foot pain throughout the day today. He denies any specific injury but states that 5 weeks ago he was in a walking boot for a fracture. He has known significant osteoporosis related to his comorbid disease. He has not taken anything for discomfort. He has chronic lower extremity swelling in both legs but no swelling today in the foot. He is ambulatory with normal gait per her caretakers. - History of Current Complaint Stated Complaint: LEFT FOOT PAIN Time Seen by Provider: 01/10/18 16:12 Hx Obtained From: Patient, Family/Superintendent Institution - Allergies/Home Medications Allergies/Adverse Reactions: Allergies Allergy/AdvReac Type Severity Reaction Status Date / Time amoxicillin [From Augmentin] Allergy Rash Verified 01/10/18 16:23 ampicillin Allergy Rash Verified 01/10/18 16:23 clavulanic acid Allergy Rash Verified 01/10/18 16:23 [From Augmentin] Sulfa (Sulfonamide Allergy Rash Verified 01/10/18 16:23 Antibiotics) CHLORINE Allergy Rash Uncoded 01/10/18 16:23 PMH/Surg Hx/FS Hx/Imm Hx Previously Healthy: No - Prader-Willi Syndrome, osteoporosis Endocrine History: Diabetes, Thyroid Disease Other History Of: Negative For: HIV, Hepatitis B, Hepatitis C, Anticoagulant Therapy - Surgical History Surgical History: Yes Surgery Procedure, Year, and Place: HERNIA Repair,. REPAIR OF LEFT RETINAL DETACHMENT. BILATERAL CATARACT REMOVAL. YAG CAPSULOTOMY LEFT EYE - Family History Known Family History: Positive: Diabetes Negative: Cardiac Disease, Hypertension - Social History Alcohol Use: None Alcohol Amount: occasional beer Substance Use Type: None Smoking Status (MU): Never Smoked Tobacco Have You Smoked in the Last Year: No - Immunization History Most Recent Influenza Vaccination: none Review of Systems Constitutional: Negative Cardiovascular: Negative Motor: Negative Musculoskeletal: Edema, Other: - L foot pain Neurological: Negative All Other Systems Reviewed And Are Negative: Yes Physical Exam - Summary Physical Exam Summary: child-like size, answers all questions appropriately Triage Information Reviewed: Yes Appearance: Well-Appearing, No Pain Distress ENT Exam: Normal Respiratory Exam: Normal Respiratory: Positive: Lungs clear Cardiovascular: Positive: RRR Musculoskeletal: Positive: Other: - Bilateral pretibial edema described as chronic by patient and caregiver. Left foot tenderness at the fifth metatarsal head without swelling or redness. Normal gait. Neurological Exam: Normal Skin Exam: Normal Diagnostics - Radiology L foot Xray Interpretation: Positive (See Comments) - Distal left fifth metatarsal fracture with healing unchanged from 12/22/17. Imperfect alignment Radiology Interpretation Completed By: ED Physician Lower Extremity Course/Dx - Course Course Of Treatment: Patient was significant comorbidity with his Prader-Willi syndrome and significant osteoporosis likely has reasoned that his fifth metatarsal fracture was treated conservatively. He has had healing however the fracture is not imperfect alignment likely causing the pain that led to presentation today. He will follow-up with his orthopedist and take Tylenol as needed. An Sulaiman wrap was applied for comfort. - Differential Dx/Diagnosis Differential Diagnosis/HQI/PQRI: Other - New fracture, sprain/strain Provider Diagnoses: Left foot pain. Status post fracture of the left fifth metatarsal Discharge - Sign-Out/Discharge Documenting (check all that apply): Patient Departure All imaging exams completed and their final reports reviewed: No - Discharge Plan Condition: Improved Disposition: HOME Patient Education Materials: Foot Fracture in Adults (ED) Referrals: Ari Nicole DO [Primary Care Provider] - Additional Instructions: Patient may resume all medications and activities. He must follow-up with the orthopedist caring for his left foot. Tylenol, ice as needed. Sulaiman wrap for comfort and protection. Return if worse, new symptoms or other concerns. - Billing Disposition and Condition Condition: IMPROVED Disposition: Home - Attestation Statements Document Initiated by Scribe: Oliva
--- NOTE | 2018-01-10 17:02 | RAD ---
INDICATION: Worsening foot pain in a patient reported to have a fracture left fifth metatarsal. COMPARISON: Most recent comparison radiograph is dated October 20, 2017 TECHNIQUE: 3 views of the left foot were obtained. FINDINGS: Again seen is a minimally displaced fracture at the distal left fifth metatarsal metaphysis. The distal fracture fragment is displaced approximately 2 mm medial relative to the proximal fracture pole. The remaining visualized bones are intact and appropriately aligned. IMPRESSION: MINIMALLY DISPLACED FRACTURE AT THE DISTAL LEFT FIFTH METATARSAL, SIMILAR IN APPEARANCE TO THE OCTOBER 20, 2017 FOOT X-RAY, WITH A SMALL AMOUNT OF INTERVAL BONY CALLUS FORMATION.
--- NOTE | 2018-01-11 06:51 | UC ---
Discharge - Sign-Out/Discharge Documenting (check all that apply): Post-Discharge Follow Up All imaging exams completed and their final reports reviewed: Yes - Discharge Plan Condition: Improved Disposition: HOME Patient Education Materials: Foot Fracture in Adults (ED) Referrals: Ari Nicole DO [Primary Care Provider] - Additional Instructions: Patient may resume all medications and activities. He must follow-up with the orthopedist caring for his left foot. Tylenol, ice as needed. Sulaiman wrap for comfort and protection. Return if worse, new symptoms or other concerns. - Billing Disposition and Condition Condition: IMPROVED Disposition: Home
== END 2018-01-10 16:59 | disposition home or self-care (01) ==
LOC: UCCORT 16:03
DX: S92.352D Displaced fracture of fifth metatarsal bone, left foot, subsequent encounter for fracture with routine healing (principal); X58.XXXD Exposure to other specified factors, subsequent encounter; Y92.9 Unspecified place or not applicable; Q87.1 Congenital malformation syndromes predominantly associated with short stature; M81.0 Age-related osteoporosis without current pathological fracture; Z88.0 Allergy status to penicillin; Z88.1 Allergy status to other antibiotic agents; Z88.8 Allergy status to other drugs, medicaments and biological substances; E11.9 Type 2 diabetes mellitus without complications
CPT/HCPCS: 99211; A9270-GY; G0463

== ENCOUNTER 2018-01-29 17:37 | Emergency (ER) | payer MEDICARE, MEDICAID ==
--- OUTSIDE RECORDS SUMMARY | 2018-01-29 18:56 | XMS REPORT ---
:1970 External Reference #:[id number] Author Organization [facility] Address [address] [place] [address] [place] [address] Phone [phone] Care Team Providers Name Role Phone Ari NicoleDO Primary Care Physician Unavailable Payers Type Date Identification Numbers Payment Provider Subscriber Medicare Primary Effective: Policy Number: Medicare Ron Kunz 1999 [id number] PayID: [id number] [address] [place] [address] [place] Policy Number: [id number] Medicaid Ron Kunz Group Name: 1 1 [address] PayID: [id number] [place] [address] Problems Description No Information Family History Date Family Member(s) Problem(s) Comments General None Social History Type Date Description Comments Occupation works at [employer] ETOH Use Occasionally consumes beer Smoking Patient [...] Indications Ordering Provider Nystatin 00// Active Cream [id number] topically Unknown 0000 t/GM twice a day [...] / Active Tablets 30mg Unknown 0000 Ferrous 00/ Active Tablets 324(38Fe) 1 by mouth Unknown Gluconate 0000 mg every day Glipizide ER 00/ Active Tablets ER 5mg 1 by mouth Unknown 0000 24HR every morning Alfuzosin HCL 00/ Active Tablets ER 10mg Unknown ER 0000 24HR Lipitor 00/ Active Tablets 10mg 1 by mouth Unknown 0000 every night at bedtime See Med List Osei 2010 - Juan, M.DHiram 2017 Vital Signs Date Vital Result Comment 01/17/2018 Heart Rate 96 /min BP Systolic 120 mmHg BP Diastolic 84 mmHg Respiratory Rate 16 /min Pain Level 0 12/22/2017 Height 56 inches 4'8" Weight 120.00 [...] Information Procedures Date CPT Code Description Status 12/22/2017 16714 Rad Exam; Foot Comp Completed 11/24/2017 42556 Rad Exam; Foot Comp Completed Encounters Type Date Location Provider CPT E/M Dx Office Visit 12/22/2017 [place] [address] [id number] 3:30p Of Dialysis Nurse AT [place] Office Visit 11/24/2017 [place] [address] [id number] 11:15a Of Dialysis Nurse AT [place] Office Visit 10/25/2017 [place] [address] S92.352A 3:00p Of Dialysis Nurse AT [place] Office Visit 04/19/2011 Sports Medicine Osei Martinez M.D. 22883 845.00 2:30p Dialysis Nurse AT [place] Office Visit 03/22/2011 Sports Medicine Osei Martinez M.D. 29596 845.00 3:30p Dialysis Nurse AT [place] Office Visit 03/04/2011 Sports Tim Osei Martinez M.D. 91908 845.00 2:45p Dialysis Nurse AT [place] Plan of Care 01/17/2018 - Kenneth Hess, [id number] Disp fx of 5th metatarsal bone, l ft, 7thDFollow up:Follow up: As needed
[2018-01-29 18:59] VITALS: BP 150/90
[2018-01-29] MEDS ORDERED: Cephalexin CAP* 500 MG PO ONE (19:17)
--- NOTE | 2018-01-29 19:24 | UC ---
Skin Complaint HPI - HPI Summary HPI Summary: C/O possible bug bite yesterday with itching. Today with erythema extending up the arm. - History of Current Complaint Chief Complaint: UCSkin Time Seen by Provider: 01/29/18 19:09 Stated Complaint: SKIN COMPLAINT Hx Obtained From: Patient Onset/Duration: Sudden Onset, Lasting Days - 1, Worse Since - today Onset Severity: Mild - with just itching Current Severity: Mild Pain Intensity: 0 Location: Discrete - Left hand extending up the volar forearm. Character: Pruritus, Redness Aggravating Factor(s): Nothing Alleviating Factor(s): Nothing Associated Signs & Symptoms: Positive: Negative Related History: Insect Bite/Sting - 2 spots on the cook left hand at the wrist and at the base of the thumb. - Allergy/Home Medications Allergies/Adverse Reactions: Allergies Allergy/AdvReac Type Severity Reaction Status Date / Time amoxicillin [From Augmentin] Allergy Rash Verified 01/29/18 18:59 ampicillin Allergy Rash Verified 01/29/18 18:59 clavulanic acid Allergy Rash Verified 01/29/18 18:59 [From Augmentin] Sulfa (Sulfonamide Allergy Rash Verified 01/29/18 18:59 Antibiotics) CHLORINE Allergy Rash Uncoded 01/29/18 18:59 Review of Systems Skin: Rash Is Patient Immunocompromised?: No All Other Systems Reviewed And Are Negative: Yes PMH/Surg Hx/FS Hx/Imm Hx Endocrine History: Dyslipidemia Other Endocrine History: Osteoporosis Other Neurological History: Mild MR Other History Of: Negative For: HIV, Hepatitis B, Hepatitis C, Anticoagulant Therapy - Surgical History Surgical History: Yes Surgery Procedure, Year, and Place: HERNIA Repair,. REPAIR OF LEFT RETINAL DETACHMENT. BILATERAL CATARACT REMOVAL. YAG CAPSULOTOMY LEFT EYE - Family History Known Family History: Positive: Diabetes Negative: Cardiac Disease, Hypertension - Social History Occupation: Disabled Lives: Assisted Alcohol Use: None Alcohol Amount: occasional beer Substance Use Type: None Smoking Status (MU): Never Smoked Tobacco Have You Smoked in the Last Year: No - Immunization History Most Recent Influenza Vaccination: none Physical Exam Triage Information Reviewed: Yes Appearance: Well-Appearing, No Pain Distress, Well-Nourished Vital Signs: Initial Vital Signs Temp 97.7 F 01/29/18 18:51 Pulse 85 01/29/18 18:51 Resp 19 01/29/18 18:51 BP 150/90 01/29/18 18:51 Pulse Ox 99 01/29/18 18:51 Vital Signs Reviewed: Yes Eyes: Positive: Conjunctiva Clear Neck exam: Normal Respiratory Exam: Normal Cardiovascular Exam: Normal Musculoskeletal Exam: Normal Neurological Exam: Normal Psychological Exam: Normal Skin: Positive: Other - two insect bites on the left hand/ wrist with erythema extending up the forearm with lymphangitis extending up to the elbow. Course/Dx - Differential Diagnoses - Skin Complaint Differential Diagnoses: Abscess, Cellulitis, Lymphadenitis, Lymphangitis - Diagnoses Provider Diagnoses: Insect bite left hand. Celluitis left arm. lymphangitis left arm Discharge - Sign-Out/Discharge Documenting (check all that apply): Patient Departure All imaging exams completed and their final reports reviewed: No Studies - Discharge Plan Condition: Stable Disposition: HOME Prescriptions: Cephalexin CAP* [Keflex 500 CAP*] 500 mg PO QID #28 cap Patient Education Materials: Cellulitis (ED), Lymphangitis (ED), Cephalexin ( By mouth) Referrals: Ari Nicole DO [Primary Care Provider] - - Billing Disposition and Condition Condition: STABLE Disposition: Home Images Hands: 1 - Insect bite 2 - Insect bite 3 - erythema 4 - lymphangitis extending up the forearm.
== END 2018-01-29 19:35 | disposition home or self-care (01) ==
LOC: UCCORT 17:37
DX: S60.562A Insect bite (nonvenomous) of left hand, initial encounter (principal); W57.XXXA Bitten or stung by nonvenomous insect and other nonvenomous arthropods, initial encounter; Y93.9 Activity, unspecified; Y92.9 Unspecified place or not applicable; L03.90 Cellulitis, unspecified; I89.1 Lymphangitis; F79 Unspecified intellectual disabilities; Z88.0 Allergy status to penicillin; Z88.1 Allergy status to other antibiotic agents
CPT/HCPCS: 99213; A9270-GY; G0463

== ENCOUNTER 2018-02-17 16:42 | Emergency (ER) | payer MEDICARE, MEDICAID ==
--- OUTSIDE RECORDS SUMMARY | 2018-02-17 17:29 | XMS REPORT | Continuity of Care Document ---
:1970 External Reference #:[id number] Author Name Josselin Alberts Care Team Providers Name Role Phone Nicole, Mir DO Care Team Information Front Services Agent Unavailable Nicole, Mir DO Primary Care Physician Unavailable Payers Type Date Identification Numbers Payment Provider Subscriber Policy Number: [id number] Medicare Ron Kunz PayID: [id number] [address] [place] [address] Policy Number: [id number] Medicaid Ron Kunz Group Name: 1 1 [address] PayID: [id number] [place] [address] Advance Directives Description No Information Available Problems Description No Information Family History Date Family Member(s) Problem(s) Comments General Unknown Father Non Contributory Mother Non Contributory Social History Type Date Description Comments Sex Unknown Marital Status Single General Lives in an assisted living setting Tobacco Use Start: Unknown Never Smoked Cigarettes ETOH Use Denies alcohol use Recreational Drug Use Never Used Drugs Allergies, Adverse Reactions, Alerts Date Description Reaction Status Severity Comments 07/03/2014 Ampicillin Active 06/05/2015 Chlorine Active 06/05/2015 Amoxicillin Trihydrate Active 06/05/2015 Penicillins Active 06/05/2015 Sulfa (Sulfonamide Antibiotics) Active 07/03/2014 sulfa Inactive 07/03/2014 Augmentin Inactive Medications Medication Date Status Form Strength Qnty SIG Indications Ordering Provider Baby Oil 09/03/ Active Oil 1Bott apply Soren, 2016 le 3drops Reuben, affected M.D. ears at night . will need dropper Buspirone HCL / Active Tablets 15mg PO bid Unknown 0000 Januvia / Active Tablets 100mg 1 by Unknown 0000 mouth every day Claritin / Active Tablets 10mg 1 by Unknown 0000 mouth every day Acetaminophen / Active 650mg q4hs prn Unknown 0000 Artificial Tears / Active Solution prn Unknown 0000 [facility] D3 00/00/ Active Capsules 1000Unit Once Unknown 0000 Daily Metformin 00/00/ Active Once Yumiko Unknown 0000 Atorvastatin 00/00/ Active Tablets 10mg 1 by Unknown Calcium 0000 mouth every day Glipizide XL / Active Tablets ER 5mg take 2 Unknown 0000 24HR tablets twice a day before meals Ferrous Sulfate 00/00/ Active Tablets 325(65Fe) 1 by Unknown 0000 mg mouth twice a day Alfuzosin HCL ER / Active Tablets ER 10mg Unknown 0000 24HR Mupirocin 12/15/ Hx Ointment 2% 2 Times A Unknown 2011 - 2016 Ferrous Sulfate 00/00/ Hx Tablets 325(65Fe) 1 by Unknown 0000 - mg mouth 01/16/ every day 2014 Vitamin D / Hx Tablets 1000Unit 1 by Unknown 0000 - mouth tid 2016 Oyst-Ivan 00/ Hx Tablets 500mg tid Unknown - 2016 Metformin HCL /00/ Hx Tablets 750mg take one Unknown 0000 - tablet by 05/09/ 2015 twice a day Rapaflo /00/ Hx Capsules 8mg po qd Unknown 2016 Aspirin 00/00/ Hx Tablets 81mg 1 by Unknown 0000 - mouth 07/07/ every day 2015 Simvastatin /00/ Hx Tablets 10mg 1 by Unknown 0000 - mouth 02/19/ 2009 Prilosec /00/ Hx Capsules DR 20mg 1 p.o. qd Unknown 2016 Sudafed 12 Hour /00/ Hx Tablets ER 30mg as needed Unknown 0000 - 12HR 2016 Triple /00/ Hx Ointment 1% Unknown Antibiotic Plus 0000 - Maximum Strength 2016 Lotrisone /00/ Hx Cream 1-0.05% prn Unknown 2016 Maalox /00/ Hx Suspension Unknown 2016 Milk Of Magnesia / Hx Suspension prn Unknown 2016 Hydrocortisone /00/ Hx Cream 1% as needed Unknown - 2015 Aspirin Ec 00/00/ Hx Tablets DR 81mg Once Unknown 0000 - Daily 2015 Calcium 00/00/ Hx Tablets 500mg 3 Times Unknown 0000 - Daily 2016 Clotrimazole/Bet / Hx Cream as Needed Unknown amethasone 0000 - Dipropionate 2016 Durasoft Colors / Hx Solution as Needed Unknown Lubricating And 0000 - Rewetting Drops 2016 Witch Doctor / Hx Pads as Needed Unknown 0000 - 2016 Hydrocortisone / Hx Cream 1% as Needed Unknown Plus 0000 - 2016 Milk Of Magnesia / Hx Suspension 1200mg/15 as Needed Unknown 0000 - ML 2015 Polyethylene / Hx Powder [id number] 1unit Once Unknown Glycol 3350 0000 - s Daily 2016 Januvia / Hx Tablets 25mg Once Unknown 0000 - Daily 2016 Immunizations Description No Information Available Vital Signs Date Vital Result Comment 02/14/2018 3:58pm Weight 129.00 lb Height 59 inches 4'11" BMI (Body Mass Index) 26.1 kg/m2 BP Systolic 147 mmHg BP Diastolic 92 mmHg Heart Rate 82 /min O2 % BldC Oximetry 97 % Body Temperature 98.3 F Pain Level 0 08/09/2017 4:00pm Weight 124.00 lb Height 59 inches 4'11" BMI (Body Mass Index) 25.0 kg/m2 BP Systolic 128 mmHg BP Diastolic 87 mmHg Heart Rate 83 /min O2 % BldC Oximetry 99 % Body Temperature 97.6 F Pain Level 0 02/08/2017 3:48pm Weight 124.00 lb Height 59 inches 4'11" BMI (Body Mass Index) 25.0 kg/m2 BP Systolic 124 mmHg BP Diastolic 75 mmHg Heart Rate 82 /min O2 % BldC Oximetry 99 % Body Temperature 97.6 F Pain Level 0 07/19/2016 9:06am Weight 120.00 lb Height 59 inches 4'11" BMI (Body Mass Index) 24.2 kg/m2 BP Systolic 124 mmHg BP Diastolic 72 mmHg Heart Rate 78 /min O2 % BldC Oximetry 96 % Body Temperature 97.5 F 01/19/2016 9:09am Weight 120.38 lb Height 59 inches 4'11" BMI (Body Mass Index) 24.3 kg/m2 BP Systolic 108 mmHg BP Diastolic 70 mmHg Heart Rate 83 /min O2 % BldC Oximetry 98 % Body Temperature 98.0 F 10/08/2015 4:14pm Weight 118.12 lb Height 59 inches 4'11" BMI (Body Mass Index) 23.9 kg/m2 Body Temperature 98.4 F 07/21/2015 10:03am Weight 116.00 lb Height 59 inches 4'11" BMI (Body Mass Index) 23.4 kg/m2 BP Systolic 124 mmHg BP Diastolic 86 mmHg Body Temperature 98.4 F 06/06/2015 10:18am Weight 117.00 lb with snow boots Height 59 inches 4'11" BMI (Body Mass Index) 23.6 kg/m2 BP Systolic 122 mmHg BP Diastolic 86 mmHg Heart Rate 84 /min O2 % BldC Oximetry 93 % Body Temperature 97.6 F 01/17/2015 10:06am Weight 118.25 lb Height 59 inches 4'11" BMI (Body Mass Index) 23.9 kg/m2 BP Systolic 110 mmHg BP Diastolic 84 mmHg Heart Rate 100 /min O2 % BldC Oximetry 97 % Body Temperature 98.3 F 07/17/2014 4:05pm Weight 120.00 lb Height 59 inches 4'11" BMI (Body Mass Index) 24.2 kg/m2 BP Systolic 122 mmHg BP Diastolic 84 mmHg Heart Rate 83 /min O2 % BldC Oximetry 99 % Body Temperature 98.4 F 07/03/2014 4:08pm Weight 121.00 lb Height 59 inches 4'11" BMI (Body Mass Index) 24.4 kg/m2 BP Systolic 108 mmHg BP Diastolic 76 mmHg Heart Rate 74 /min O2 % BldC Oximetry 99 % Body Temperature 98.0 F Pain Level 0 05/30/2009 10:24am Weight 122.00 lb Height 56 inches 4'8" BMI (Body Mass Index) 27.3 kg/m2 Heart Rate 78 /min O2 % BldC Oximetry 96 % Body Temperature 98.2 F Results Description No Information Available Procedures Date Code Description Status 08/09/2017 23686 Tympanometry Completed 08/09/2017 60695 Audiometry, Comprehensive Completed 02/08/2017 50166 Remove Impacted Cerumen Completed 07/27/2016 15511 Tympanometry Completed 07/27/2016 12390 Audiometry, Comprehensive Completed 01/19/2016 65418 Remove Impacted Cerumen Completed 10/08/2015 99999 Remove Impacted Cerumen Completed 07/21/2015 21109 Remove Impacted Cerumen Completed 06/06/2015 60214 Nasal/Sinus Endoscopy, Surgical, W/Control Of Epistaxis Completed 01/17/2015 48576 Remove Impacted Cerumen Completed 07/17/2014 47165 Tympanometry Completed 07/17/2014 97792 Audiometry, Comprehensive Completed 07/17/2014 45201 Remove Impacted Cerumen Completed Encounters Type Date Location Provider Dx Diagnosis Office Visit 08/09/2017 Main Office Reuben Doty M.D. 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 R04.0 Epistaxis J34.2 Deviated nasal septum H91.90 Unspecified hearing loss, unspecified ear Office Visit 07/03/2014 3:30p Main Office Reuben Doty M.D. 380.4 Cerumen Removal 389.9 Hearing Loss Unspec Office Visit 05/30/2009 10:45a Main Office Suzie Epps PA 784.7 Epistaxis 470 Deviated Nasal Septum Plan of Treatment No Information Available
[2018-02-17 17:36] VITALS: BP 113/80
[2018-02-17] MEDS ORDERED: Ondansetron ODT TAB* 4 MG PO ONE (18:09)
--- NOTE | 2018-02-17 18:26 | UC ---
Abdominal Pain Male HPI - HPI Summary HPI Summary: Pt is accompanied by caregiver. Pt was seen by PCP this morning with c/o LIM and abdominal pain. Pt was instructed to take PO tylenol for LIM and took some today at 1530. Pt reports not improvement of LIM. Pt denies, diarrhea, or constipation, fever or chills. Pt has c/o nausea and decreased appetite - History of Current Complaint Chief Complaint: UCGI Stated Complaint: STOMACH,HEADACHE Time Seen by Provider: 02/17/18 17:51 Hx Obtained From: Patient, Family/Optical Designer Onset/Duration: Sudden Onset, Lasting Hours, Still Present Timing: Constant Severity Initially: Mild Severity Currently: Severe Pain Intensity: 10 Location: Diffuse Radiates: No Character: Cramping, Dull Alleviating Factor(s): Nothing Associated Signs And Symptoms: Positive: Decreased Appetite, Nausea - Risk Factors Testicular Torsion: Negative Cardiac Risk Factors: Negative - Allergies/Home Medications Allergies/Adverse Reactions: Allergies Allergy/AdvReac Type Severity Reaction Status Date / Time amoxicillin [From Augmentin] Allergy Rash Verified 02/17/18 17:28 ampicillin Allergy Rash Verified 02/17/18 17:28 clavulanic acid Allergy Rash Verified 02/17/18 17:28 [From Augmentin] Sulfa (Sulfonamide Allergy Rash Verified 02/17/18 17:28 Antibiotics) CHLORINE Allergy Rash Uncoded 02/17/18 17:28 PMH/Surg Hx/FS Hx/Imm Hx - Additional Past Medical History Additional PMH: prader-willi Previously Healthy: Yes Endocrine History: Diabetes, Dyslipidemia Other History Of: Negative For: HIV, Hepatitis B, Hepatitis C, Anticoagulant Therapy - Surgical History Surgical History: Yes Surgery Procedure, Year, and Place: HERNIA Repair,. REPAIR OF LEFT RETINAL DETACHMENT. BILATERAL CATARACT REMOVAL. YAG CAPSULOTOMY LEFT EYE - Family History Known Family History: Positive: Diabetes Negative: Cardiac Disease, Hypertension - Social History Occupation: Disabled Lives: Prison Alcohol Use: None Alcohol Amount: occasional beer Substance Use Type: None Smoking Status (MU): Never Smoked Tobacco Have You Smoked in the Last Year: No - Immunization History Most Recent Influenza Vaccination: none Review of Systems Constitutional: Negative Skin: Negative Eyes: Negative ENT: Negative Respiratory: Negative Cardiovascular: Negative Gastrointestinal: Abdominal Pain, Nausea Genitourinary: Negative Motor: Negative Neurovascular: Negative Musculoskeletal: Negative Neurological: Headache Psychological: Negative Is Patient Immunocompromised?: No All Other Systems Reviewed And Are Negative: Yes Physical Exam - Summary Physical Exam Summary: Pt has prader willi Triage Information Reviewed: Yes Appearance: Well-Appearing Vital Signs: Initial Vital Signs Temp 98.1 F 02/17/18 17:30 Pulse 105 02/17/18 17:30 Resp 15 02/17/18 17:30 BP 113/80 02/17/18 17:30 Pulse Ox 97 02/17/18 17:30 Vital Signs Reviewed: Yes Eye Exam: Normal ENT Exam: Normal Dental Exam: Normal Neck exam: Normal Respiratory Exam: Normal Cardiovascular Exam: Normal Abdominal Exam: Other - c/o tenderness umbilicus and RLQ Bowel Sounds: Positive: Present Musculoskeletal Exam: Normal Neurological Exam: Normal Psychological Exam: Normal Skin Exam: Normal Abd Pain Male Course/Dx - Differential Dx/Clinical Impression Differential Diagnosis/HQI/PQRI: Appendicitis Provider Diagnoses: Headache. abdominal pain Discharge - Sign-Out/Discharge Documenting (check all that apply): Patient Departure All imaging exams completed and their final reports reviewed: No Studies - Discharge Plan Condition: Stable Disposition: HOME Patient Education Materials: Acute Headache (ED), Abdominal Pain (ED) Referrals: Ari Nicole DO [Primary Care Provider] - 5 Days Additional Instructions: If your symptoms do not improve or they worsen please seek care at the closest emergency room. - Billing Disposition and Condition Condition: STABLE Disposition: Home
[2018-02-17] MEDS ORDERED: Ibuprofen TAB* 400 MG PO ONE (18:48)
== END 2018-02-17 19:13 | disposition home or self-care (01) ==
LOC: UCCORT 16:42
DX: R51 Headache (principal); R10.33 Periumbilical pain; R10.31 Right lower quadrant pain; Z88.0 Allergy status to penicillin; Z88.1 Allergy status to other antibiotic agents; E11.9 Type 2 diabetes mellitus without complications
CPT/HCPCS: 99212; A9270-GY; G0463

== ENCOUNTER 2018-08-08 16:55 | Emergency (ER) | payer MEDICARE, MEDICAID ==
[2018-08-08 19:16] VITALS: BP 131/96
[2018-08-08] MEDS ORDERED: DOXYcycline CAP(*) 100 MG PO ONE ×2 (19:35→19:36)
--- NOTE | 2018-08-08 19:38 | UC ---
Epistaxis Nasal HPI - HPI Summary HPI Summary: 48-year-old male comes in with a chief complaint of nosebleed in the right nostril. Started about 2 hours ago. Not on any blood thinners. If he holds the nostril tightness the bleeding stops, When he doesn't it keeps bleeding. Feels well otherwise. - History of Current Complaint Chief Complaint: UCGeneralIllness Stated Complaint: NOSE BLEED Time Seen by Provider: 08/08/18 19:07 Pain Intensity: 0 - Allergies/Home Medications Allergies/Adverse Reactions: Allergies Allergy/AdvReac Type Severity Reaction Status Date / Time amoxicillin [From Augmentin] Allergy Rash Verified 08/08/18 19:02 ampicillin Allergy Rash Verified 08/08/18 19:02 clavulanic acid Allergy Rash Verified 08/08/18 19:02 [From Augmentin] Sulfa (Sulfonamide Allergy Rash Verified 08/08/18 19:02 Antibiotics) CHLORINE Allergy Rash Uncoded 08/08/18 19:02 Home Medications: Home Medications Omeprazole 20 mg PO DAILY 08/08/18 [History Confirmed 08/08/18] PMH/Surg Hx/FS Hx/Imm Hx Previously Healthy: Yes Endocrine History: Diabetes Other History Of: Negative For: HIV, Hepatitis B, Hepatitis C, Anticoagulant Therapy - Surgical History Surgical History: Yes Surgery Procedure, Year, and Place: HERNIA Repair,. REPAIR OF LEFT RETINAL DETACHMENT. BILATERAL CATARACT REMOVAL. YAG CAPSULOTOMY LEFT EYE - Family History Known Family History: Positive: Diabetes Negative: Cardiac Disease, Hypertension - Social History Alcohol Use: None Alcohol Amount: occasional beer Substance Use Type: None Smoking Status (MU): Never Smoked Tobacco Have You Smoked in the Last Year: No - Immunization History Most Recent Influenza Vaccination: none Review of Systems All Other Systems Reviewed And Are Negative: Yes Constitutional: Positive: Negative Skin: Positive: Negative Eyes: Positive: Negative ENT: Positive: Nasal Discharge - see hpi Respiratory: Positive: Negative Cardiovascular: Positive: Negative Gastrointestinal: Positive: Negative Motor: Positive: Negative Neurovascular: Positive: Negative Musculoskeletal: Positive: Negative Neurological: Positive: Negative Psychological: Positive: Negative Is Patient Immunocompromised?: No Physical Exam Triage Information Reviewed: Yes Appearance: Well-Appearing, No Pain Distress, Well-Nourished Vital Signs: Initial Vital Signs Temp 97.9 F 08/08/18 19:10 Pulse 102 04/02/19 19:10 Resp 18 08/08/18 19:10 BP 131/96 08/08/18 19:10 Pulse Ox 97 08/08/18 19:10 Vital Signs Reviewed: Yes Eye Exam: Normal Eyes: Positive: Conjunctiva Clear ENT: Positive: Other - Active nose bleed right nostril Neck exam: Normal Neck: Positive: Supple Respiratory: Positive: Lungs clear, Normal breath sounds, No respiratory distress Cardiovascular: Positive: RRR Musculoskeletal Exam: Normal Musculoskeletal: Positive: Strength Intact, ROM Intact Neurological Exam: Normal Neurological: Positive: Alert, Muscle Tone Normal Psychological Exam: Normal Psychological: Positive: Age Appropriate Behavior Skin Exam: Normal Epistaxis Nasal Course/Dx - Course Course Of Treatment: I PLACED A RHINO ROCKET IN THE RIGHT NOSTRIL. BLEEDING STOPPED. RX DOXYCYCLINE AND F/U ENT 2-3 DAYS. GO TO ED IF WORSE. - Differential Dx/Diagnosis Provider Diagnosis: Nasal bleeding Discharge - Sign-Out/Discharge Documenting (check all that apply): Patient Departure All imaging exams completed and their final reports reviewed: No Studies - Discharge Plan Condition: Stable Disposition: HOME Prescriptions: DOXYcycline CAP(*) [DOXYcycline 100MG CAP(*)] 100 mg PO BID #12 cap Patient Education Materials: Nosebleed (ED) Referrals: Ari Nicole DO [Primary Care Provider] - Reuben Doty MD [Medical Doctor] - Sumeet Campbell MD [Medical Doctor] - Additional Instructions: FOLLOW UP WITH ENT IN 2-3 DAYS, DR CAMPEBLL OR DR DOTY. GO TO THE EMERGENCY DEPARTMENT FOR ANY WORSENING OF YOUR CONDITION; CONTINUED OR WORSE BLEEDING, YOU FEEL LIKE PASSING OUT, YOU FEEL ILL OR ANY QUESTIONS OR CONCERNS. - Billing Disposition and Condition Condition: STABLE Disposition: Home
== END 2018-08-08 20:14 | disposition home or self-care (01) ==
LOC: UCCORT 16:55
DX: R04.0 Epistaxis (principal); E11.9 Type 2 diabetes mellitus without complications; Z88.1 Allergy status to other antibiotic agents; Z88.0 Allergy status to penicillin; Z88.2 Allergy status to sulfonamides
CPT/HCPCS: 30901; 99213; A9270-GY; G0463

== ENCOUNTER 2019-03-14 15:41 | Emergency (ER) | payer MEDICAID, MEDICARE, OTHER ==
--- OUTSIDE RECORDS SUMMARY | 2019-03-14 15:56 | XMS REPORT | Continuity of Care Document ---
:1970 External Reference #:[id number] Author Name Ej Mckinney PA Address [address], [address] [place] [address] Care Team Providers Name Role Phone Ari Nicole DO - Family Medicine Care Team Information Signalman [phone] Problems Description No Information Available Social History Type Date Description Comments Sex Unknown Tobacco Use Start: Unknown Never Smoked Cigarettes ETOH Use Denies alcohol use Tobacco Use Start: Unknown Patient has never smoked Smoking Status Reviewed: 10/30/18 Patient has never smoked Allergies, Adverse Reactions, Alerts Active Allergies Reaction Severity Comments Date Augmentin 07/08/2009 Ampicillin 07/08/2009 Sulfa Drugs 07/08/2009 Lipitor MYALGIAS WITH CPK RISE 07/08/2009 Medications Active Medications SIG Qnty Indications Ordering Date Provider Alfuzosin HCL ER Take 1 Tablet By laz Sands, 10/06/2018 10mg Mouth Daily *DO Not Mary Go Tablets ER 24HR Crush Or Chew* Polyethylene Glycol 17g In 8Oz Fluid PO Joseph Clayton, Daily MD Jeffrey Jha take one tablet by Ari Nicole, 100mg Tablets mouth daily DO Metformin HCL ER (Osm) take one tablet by Ari Nicole, mouth twice a day DO 1000mg Tablets ER 24HR Omeprazole 1 by mouth daily Ari Nicole, 20mg Capsules DO Buspirone HCL take one tablet by Ari Nicole, 15mg mouth 2 times daily DO Tablets Glipizide ER take one tablet my Ari Nicole, 5mg Tablets mouth daily DO ER 24HR Ferrous Sulfate 1 tab by mouth Unknown 325mg twice a day Tablets Loratadine 1 by mouth every Unknown 10mg Capsules day Oyster Shell Calcium take 1 tablet by Unknown 500 mouth 3 times daily 500mg Tablets Vitamin D3 1 by mouth every Unknown 2000Unit day Capsules Acetaminophen 2 tabs by mouth Unknown 325mg every 4 hours as Tablets needed for pain, headache, temp >101 Antacid Anti-Gas 15 mL for complain Unknown of minor stomach [id number] discomfort Suspension Guaifenesin ac give 15 mL by mouth Unknown every 4 hours as 100-10mg/5ML Syrup needed for cough QC Milk Of Magnesia give 15 mL by mouth Unknown daily as needed for 400mg/5ML Suspension constipation Pseudoephedrine HCL take one every 4-6 Unknown 30mg hours as needed for Tablets congestion Immunizations Description No Information Available Vital Signs Date Vital Result Comment 11/21/2018 8:36am BP Systolic 118 mmHg BP Diastolic 82 mmHg Heart Rate 81 /min Respiratory Rate 16 /min Height 56 inches 4'8" Weight 121.00 lb BMI (Body Mass Index) 27.1 kg/m2 BSA (Body Surface Area) 1.43 m2 [place] body weight in kilograms 48 kg O2 % BldC Oximetry 94 % Ra 10/06/2018 10:09am BP Systolic 129 mmHg BP Diastolic 82 mmHg Body Temperature 98.8 F Heart Rate 82 /min Respiratory Rate 16 /min Height 56 inches 4'8" Weight 97.00 lb BMI (Body Mass Index) 21.7 kg/m2 BSA (Body Surface Area) 1.31 m2 [place] body weight in kilograms 48 kg Pain Level 0 Results Test Date Facility Test Result H/L Range Note Basic Metabolic 10/14/2018 [facility] Glucose 98 mg/dL Normal 74-106 [address] [place] [address] [phone] BUN 16 mg/dL Normal 7-18 Creatinine 0.6 mg/dL Normal 0.6-1.3 Glom Filtration Rate, Estimate >60 mL/min >60 If >60 mL/min >60 2 BUN/Creat 26.6 ratio Sodium 133 mmol/L Low 136-145 Potassium 3.8 mmol/L Normal 3.5-5.1 Chloride 98 mmol/L Normal 98-107 Carbon Dioxide 30 mmol/L Normal 21-32 Anion Gap 5 mEq/L Low 8-16 Calcium 9.1 mg/dL Normal 8.5-10.1 Urine Culture 10/14/2018 [facility] Urine Culture NO GROWTH: FINAL <SEE [address] NOTE> [place] [address] [phone] 1 N39.0 R33.9 2 Note: Persistent reduction for 3 months or more in an eGFR <60 mL/min/1.73 m2 defines CKD. Patients with eGFR values >/=60 mL/min/1.73 m2 may also have CKD if evidence of persistent proteinuria is present. The original MDRD equation for estimated GFR is not valid for patients less than 18 years of age. Additional information may be found at www.kdoqi.org. 3 NO GROWTH: FINAL REPORT Procedures Date Code Description Status 11/21/2018 99188 Measurement Post Voiding Residual Urine By Completed Ultrasound,Non-Imaging 10/06/2018 60882 Measurement Post Voiding Residual Urine By Completed Ultrasound,Non-Imaging Medical Devices Description No Information Available Encounters Type Date Location Provider Dx Diagnosis Office Visit 11/21/2018 Urology Ej Mckinney, R33.9 Retention of urine, 8:45a PA unspecified Office Visit 10/06/2018 Urology Ej Mckinney, R33.9 Retention of urine, 10:00a PA unspecified N40.1 Benign prostatic hyperplasia with lower urinary tract symp Assessments Date Code Description Provider 11/21/2018 R33.9 Retention of urine, unspecified Ej Mckinney PA 10/06/2018 R33.9 Retention of urine, unspecified Ej Mckinney PA 10/06/2018 N40.1 Benign prostatic hyperplasia with lower Ej Mckinney PA urinary tract sympto Plan of Treatment Future Appointment(s):03/01/2019 9:30 am - Bety Christopher MD at 11/26/2019 8 :45 am - Ej Mckinney PA at Urology Functional Status Description No Information Available Mental Status Description No Information Available Referrals Description No Information Available
--- OUTSIDE RECORDS SUMMARY | 2019-03-14 15:56 | XMS REPORT | Continuity of Care Document ---
:1970 External Reference #:[id number] Author Name Reuben Doty M.D. (transmitted by agent of provider Natalie Soto) Address [address] [place] [address] Care Team Providers Name Role Phone Corey DO Mir Care Team Information Technology Applications Teacher [phone] Problems Description No Information Available Social History Type Date Description Comments Sex Unknown Tobacco Use Start: Unknown Never Smoked Cigarettes ETOH Use Denies alcohol use Recreational Drug Use Never Used Drugs Allergies, Adverse Reactions, Alerts Active Allergies Reaction Severity Comments Date Ampicillin 07/03/2014 Chlorine 06/05/2015 Amoxicillin Trihydrate 06/05/2015 Penicillins 06/05/2015 Sulfa (Sulfonamide Antibiotics) 06/05/2015 Inactive Allergies sulfa 07/03/2014 Augmentin 07/03/2014 Medications Active Medications SIG Qnty Indications Ordering Date Provider Baby Oil apply 3drops 1Bottle Reuben Doty, 09/04/2015 Oil affected ears at M.D. night . will need dropper Buspirone HCL PO bid Unknown 15mg Tablets Januvia 1 by mouth every Unknown 100mg Tablets day Claritin 1 by mouth every Unknown 10mg Tablets day Acetaminophen q4hs prn Unknown 650mg Artificial Tears prn Unknown Solution [facility]S D3 Once Daily Unknown 1000Unit Capsules Metformin Once Yumiko Unknown Atorvastatin Calcium 1 by mouth every Unknown 10mg day Tablets Glipizide XL take 2 tablets Unknown 5mg Tablets twice a day ER 24HR before meals Ferrous Sulfate 1 by mouth twice Unknown 325(65Fe) a day mg Tablets Alfuzosin HCL ER Unknown 10mg Tablets ER 24HR Doxycycline Hyclate 1 po bid Unknown 100mg Capsules Immunizations Description No Information Available Vital Signs Date Vital Result Comment 02/14/2019 3:41pm Weight 120.00 lb Height 59 inches 4'11" BMI (Body Mass Index) 24.2 kg/m2 BP Systolic 121 mmHg BP Diastolic 78 mmHg Heart Rate 83 /min O2 % BldC Oximetry 96 % Body Temperature 98.1 F Pain Level 0 08/15/2018 4:04pm Weight 122.00 lb Height 59 inches 4'11" BMI (Body Mass Index) 24.6 kg/m2 BP Systolic 120 mmHg BP Diastolic 82 mmHg Heart Rate 86 /min O2 % BldC Oximetry 95 % Body Temperature 97.9 F Pain Level 0 Results Description No Information Available Procedures Description No Information Available Medical Devices Description No Information Available Encounters Description No Information Available Assessments Description No Information Available Plan of Treatment No Information Available Functional Status Description No Information Available Mental Status Description No Information Available Referrals Description No Information Available
--- OUTSIDE RECORDS SUMMARY | 2019-03-14 15:56 | XMS REPORT | Continuity of Care Document ---
:1970 External Reference #:[id number] Author Name Bety Christopher MD Address [address], [address] [place] [address] Care Team Providers Name Role Phone Corey DO Ari - Family Medicine Care Team Information Machine Lead Burner [phone] Problems Active Problems Provider Date Screening for malignant neoplasm of colon Bety Christopher MD Onset: 03/01/2019 Social History Type Date Description Comments Sex Unknown Tobacco Use Start: Unknown Never Smoked Cigarettes Smokeless Tobacco Never Used Smokeless Tobacco ETOH Use Denies alcohol use Tobacco Use Start: Unknown Patient has never smoked Recreational Drug Use Denies Drug Use Smoking Status Reviewed: 10/30/18 Patient has never smoked Allergies, Adverse Reactions, Alerts Active Allergies Reaction Severity Comments Date Augmentin 07/08/2009 Ampicillin 07/08/2009 Sulfa Drugs 07/08/2009 Lipitor MYALGIAS WITH CPK RISE 07/08/2009 Medications Active Medications SIG Qnty Indications Ordering Date Provider Dulcolax 4 tablets taken at 4tabs Z12.11 Bety Christopher, 03/01/[address] 8pm the day before MD the procedure Miralax Mix Miralax 238 gm 238gm Z12.11 Bety Christopher, 03/01/2019 3350NF Powder powder with 64 oz MD of clear liquid Gas Relief take 1 tab day 2units Z12.11 Bety Christopher, 03/01/2019 80mg Chewtabs before colonoscopy MD and 1 tab day of colonoscopy early in the am Alfuzosin HCL ER Take 1 Tablet By 30tabs Shavon, 10/06/2018 10mg Mouth Daily *DO Not Mary Go Tablets ER 24HR Crush Or Chew* Murine Tears Plus Unknown 0.05-0.5-0.6% Solution Pseudoephedrine HCL take one every 4-6 Unknown 30mg hours as needed for Tablets congestion QC Milk Of Magnesia give 15 mL by mouth Unknown daily as needed for 400mg/5ML Suspension constipation Guaifenesin ac give 15 mL by mouth Unknown every 4 hours as 100-10mg/5ML Syrup needed for cough Antacid Anti-Gas 15 mL for complain Unknown of minor stomach [phone] discomfort Suspension Acetaminophen 2 tabs by mouth Unknown 325mg every 4 hours as Tablets needed for pain, headache, temp >101 Vitamin D3 1 by mouth every Unknown 2000Unit day Capsules Oyster Shell Calcium take 1 tablet by Unknown 500 mouth 3 times daily 500mg Tablets Loratadine 1 by mouth every Unknown 10mg Capsules day Ferrous Sulfate 1 tab by mouth Unknown 325mg twice a day Tablets Glipizide ER take one tablet my Ari Nicole, 5mg Tablets mouth daily DO ER 24HR Buspirone HCL take one tablet by Ari Nicole, 15mg mouth 2 times daily DO Tablets Omeprazole 1 by mouth daily Ari Nicole, 20mg Capsules DO DR Metformin HCL ER (Osm) take one tablet by Ari Nicole, mouth twice a day DO 1000mg Tablets ER 24HR Januvia take one tablet by Ari Nicole, 100mg Tablets mouth daily DO Polyethylene Glycol 17g In 8Oz Fluid PO Joseph Clayton, Daily MD Powder Immunizations Description No Information Available Vital Signs Date Vital Result Comment 03/01/2019 9:27am BP Systolic Sitting Left Arm 125 mmHg BP Diastolic Sitting Left Arm 86 mmHg Body Temperature 95.7 F Heart Rate 80 /min Respiratory Rate 16 /min Height 56 inches 4'8" Weight 119.12 lb BMI (Body Mass Index) 26.7 kg/m2 BSA (Body Surface Area) 1.42 m2 [place] body weight in kilograms 48 kg O2 % BldC Oximetry 100 % Pain Level 0 11/21/2018 8:36am BP Systolic 118 mmHg BP Diastolic 82 mmHg Heart Rate 81 /min Respiratory Rate 16 /min Height 56 inches 4'8" Weight 121.00 lb BMI (Body Mass Index) 27.1 kg/m2 BSA (Body Surface Area) 1.43 m2 [place] body weight in kilograms 48 kg O2 % BldC Oximetry 94 % Ra Results Test Date Facility Test Result H/L Range Note Basic Metabolic 10/14/2018 [facility] Glucose 98 mg/dL Normal 74-106 [address] [place] [address] [phone] BUN 16 mg/dL Normal 7-18 Creatinine 0.6 mg/dL Normal 0.6-1.3 Glom Filtration Rate, Estimate >60 mL/min >60 If >60 mL/min >60 2 BUN/Creat 26.6 ratio Sodium 133 mmol/L Low 136-145 Potassium 3.8 mmol/L Normal 3.5-5.1 Chloride 98 mmol/L Normal 98-107 Carbon Dioxide 30 mmol/L Normal 21-32 Anion Gap 5 mEq/L Low 8-16 Calcium 9.1 mg/dL Normal 8.5-10.1 Urine Culture 10/14/2018 [facility] Urine Culture NO GROWTH: FINAL <SEE [address] NOTE> [place] [address] [phone] 1 N39.0 R33.9 2 Note: Persistent reduction [...] REPORT Procedures Date Code Description Status 11/21/2018 50807 Measurement Post Voiding Residual Urine By Completed Ultrasound,Non-Imaging 10/06/2018 98970 Measurement Post Voiding Residual Urine By Completed Ultrasound,Non-Imaging Medical Devices Description No Information Available Encounters Type Date Location Provider Dx Diagnosis Office Visit 11/21/2018 Urology Ej Mckinney, R33.9 Retention of urine, 8:45a PA unspecified Office Visit 10/06/2018 Urology Ej Mckinney, R33.9 Retention of urine, 10:00a TYRESE unspecified N40.1 Benign prostatic hyperplasia with lower urinary tract symp Assessments Date Code Description Provider 03/01/2019 Z12.11 Encounter for screening for malignant Bety Christopher MD neoplasm of colon 11/21/2018 R33.9 Retention of urine, unspecified Ej Mckinney PA 10/06/2018 R33.9 Retention of urine, unspecified Ej Mckinney PA 10/06/2018 N40.1 Benign prostatic hyperplasia with lower Ej Mckinney PA urinary tract sympto Plan of Treatment Future Appointment(s):11/26/2019 8:45 am - Ej Mckinney PA at Urology Functional Status Description No Information Available Mental Status Description No Information Available Referrals Description No Information Available
[2019-03-14 16:01] VITALS: BP 118/84
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
== END 2019-03-14 16:51 | disposition home or self-care (01) ==
LOC: UCCORT 15:41
DX: M25.511 Pain in right shoulder (principal); E11.9 Type 2 diabetes mellitus without complications; V49.9XXA Car occupant (driver) (passenger) injured in unspecified traffic accident, initial encounter; Y92.9 Unspecified place or not applicable; Z88.0 Allergy status to penicillin; Z88.2 Allergy status to sulfonamides; Z91.09 Other allergy status, other than to drugs and biological substances
CPT/HCPCS: 99212; G0463